=== PATIENT | male | born 1940 | race Asian ===

== ENCOUNTER 2022-04-30 17:55 | Inpatient (IN) | payer OTHER ==
[2022-04-30] MEDS ORDERED: SODIUM CHLORIDE 0.9% 500 ML INFUS.BAG IV ONE ×2 (19:38→21:07)
[2022-04-30] MEDS ORDERED: ACETAMINOPHEN 1000 MG/100 ML BAG IVPB ONE (19:38)
[2022-04-30] MEDS ORDERED: ACETAMINOPHEN INJECTION 100 ML IVPB ONE (19:44)
[2022-04-30 20:19] LABS: VENOUS BASE EXCESS 1.3 mmol/L (-2-2); VENOUS O2 SATURATION 50.1 % (70-80); VENOUS PCO2 45.2 mmHg (38-52); VENOUS PH 7.389 (7.310-7.410)
[2022-04-30 20:21] LABS: BASO % 0.3 % (0-2.0); HEMATOCRIT 41.5 % (35.4-49); HEMOGLOBIN 13.3 GM/dL (11.7-16.9); LYMPH % 6.8 % (8-40); MCH 25.8 pg (25.7-33.7); MEAN CELL VOLUME 80.8 fl (80-96); MONO % 8.9 % (3.8-10.2); PLATELET COUNT 203 10^3/uL (134-434); RBC 5.13 M/mm3 (4.00-5.60); RDW 14.9 % (11.9-15.9); WHITE BLOOD COUNT 8.3 K/mm3 (4.0-10.0)
[2022-04-30 20:33] LABS: INR 1.1 (0.83-1.09); PROTHROMBIN TIME (PATIENT) 12.7 SEC (9.7-13.0)
[2022-04-30 20:35] LABS: ACTIVATED PTT 34.6 SECONDS (25.2-36.5)
[2022-04-30 20:39] LABS: CHLORIDE 104 mmol/L (98-107); SODIUM 138 mmol/L (136-145)
[2022-04-30 20:41] LABS: ALBUMIN 3.3 g/dl (3.4-5.0); ANION GAP 10 MMOL/L (8-16); BLOOD UREA NITROGEN 20.1 mg/dL (7-18); CALCIUM 8.5 mg/dL (8.5-10.1); CO2 23 mmol/L (21-32); GLUCOSE,RANDOM 172 mg/dL (74-106); MAGNESIUM 2.2 mg/dL (1.8-2.4)
[2022-04-30 20:44] LABS: CREATININE 1.6 mg/dL (0.55-1.3); SGPT/ALT 28 U/L (13-61)
[2022-04-30 20:45] LABS: SGOT/AST 45 U/L (15-37)
[2022-04-30 20:46] LABS: BILIRUBIN,TOTAL 0.6 mg/dL (0.2-1); TOT PROT 6.6 g/dl (6.4-8.2)
[2022-04-30 20:47] LABS: ALK PHOS 89 U/L (45-117)
[2022-04-30 20:48] LABS: LACTIC ACID 3.2 mmol/L (0.4-2.0)
[2022-04-30 22:49] LABS: N-TERMINAL BNP 241.2 pg/ml (5-450)
[2022-04-30] MEDS ORDERED: ASPIRIN 81 MG CHEWABLE TABLETS PO ONE (23:36)
[2022-05-01] MEDS ORDERED: ASPIRIN 81 MG CHEWABLE TABLETS ONE (00:17)
[2022-05-01 03:36] VITALS: RESP 18; BMI 22.7
[2022-05-01 08:02] LABS: CALCIUM 7.8 mg/dL (8.5-10.1)
[2022-05-01 08:03] LABS: ALBUMIN 2.6 g/dl (3.4-5.0); BLOOD UREA NITROGEN 21.6 mg/dL (7-18); MAGNESIUM 2.1 mg/dL (1.8-2.4)
[2022-05-01 08:06] LABS: CREATININE 1.4 mg/dL (0.55-1.3)
[2022-05-01 08:07] LABS: BILIRUBIN,TOTAL 0.5 mg/dL (0.2-1); TOT PROT 5.4 g/dl (6.4-8.2)
[2022-05-01 08:15] LABS: BASO % 0.3 % (0-2.0); EOS % 0.2 % (0-4.5); HEMOGLOBIN 12.4 GM/dL (11.7-16.9); LYMPH % 18.6 % (8-40); MCH 25.9 pg (25.7-33.7); MCHC 31.8 g/dl (32.0-35.9); MEAN CELL VOLUME 81.6 fl (80-96); MEAN PLT VOLUME 8.1 fl (7.5-11.1); MONO % 13.5 % (3.8-10.2); NEUT % 67.4 % (42.8-82.8); PLATELET COUNT 183 10^3/uL (134-434); RBC 4.79 M/mm3 (4.00-5.60); RDW 15.2 % (11.9-15.9); WHITE BLOOD COUNT 4.5 K/mm3 (4.0-10.0)
[2022-05-01] MEDS: VALSARTAN 80 MG TABLET PO SCH (11:37)
[2022-05-01] MEDS: amLODIPine BESYLATE 5 MG TABLET (FP) PO SCH (11:37)
[2022-05-01] MEDS: HYDROCHLOROTHIAZIDE 12.5 MG CAPSULE (FP) PO SCH (11:37)
[2022-05-01] MEDS: ACETAMINOPHEN 325 MG TABLET (FP) PO PRN (17:00)
[2022-05-01] MEDS: INSULIN SLIDING SCALE (NOVOLOG) 1 VIAL SQ SCH ×2 (17:17→22:15)
[2022-05-01] MEDS ORDERED: ATORVASTATIN CA 10 MG TABLET (FP) PO SCH (22:00)
[2022-05-02 00:18] LABS: EPI CELLS 0 /uL (0-25.1); HYALINE CASTS 0 /uL (0-3.1); PH,URINE 5.5 (5.0-8.0); URINE APPEARANCE CLEAR; URINE BACTERIA 3 /uL (0-1359); URINE BILIRUBIN NEGATIVE (NEGATIVE); URINE COLOR YELLOW; URINE GLUCOSE (UA) 3+ (NEGATIVE); URINE KETONE TRACE (NEGATIVE); URINE LEUK ESTERASE NEGATIVE (NEGATIVE); URINE NITRITE NEGATIVE (NEGATIVE); URINE PROTEIN TRACE (NEGATIVE); URINE RBC 2 /uL (0-23.9); URINE UROBILINOGEN 0.2 mg/dL (0.2-1.0); URINE WBC 2 /uL (0-25.8)
[2022-05-02] MEDS: ACETAMINOPHEN 325 MG TABLET (FP) PO PRN (00:59)
[2022-05-02] MEDS: INSULIN SLIDING SCALE (NOVOLOG) 1 VIAL SQ SCH ×2 (06:42→11:42)
[2022-05-02 08:40] VITALS: TEMP 98.7
[2022-05-02] MEDS: HYDROCHLOROTHIAZIDE 12.5 MG CAPSULE (FP) PO SCH (10:08)
[2022-05-02] MEDS: VALSARTAN 80 MG TABLET PO SCH (10:09)
[2022-05-02] MEDS: amLODIPine BESYLATE 5 MG TABLET (FP) PO SCH (10:09)
[2022-05-02 15:19] VITALS: BP 123/74; PULSE 89
== END 2022-05-02 16:30 | disposition home or self-care (01) | DRG 178 ==
LOC: JER 17:55 → JERBED 22:12 → J4S 05-01 03:16
PROVIDERS: ADMIT Internal Medicine; ATTEND Internal Medicine
DX: U07.1 COVID-19 (principal); E87.20 Acidosis, unspecified; I24.8 Other forms of acute ischemic heart disease; E86.0 Dehydration; E11.9 Type 2 diabetes mellitus without complications; I10 Essential (primary) hypertension
CPT/HCPCS: 0241U-QW; 36415; 70450-TC; 71045-TC-FY; 80053; 80061; 81003; 82728; 82803; 82962; 83605; 83615; 83735; 83880; 84443; 84484; 85025; 85379; 85610; 85730; 86140; 87040; 87086; 93005; 93010; 93306-TC; 97116-GP; 97161-GP; 99285-25

== ENCOUNTER 2022-05-09 09:07 | Observation (INO) | payer OTHER ==
[2022-05-09] MEDS ORDERED: LACTATED RINGERS SOLUTION 1000 ML INFUS.BAG IV ONE (10:54)
[2022-05-09 10:59] VITALS: BMI 28.0
[2022-05-09 12:03] LABS: BASO % 0.2 % (0-2.0); EOS % 0.1 % (0-4.5); HEMATOCRIT 41.7 % (35.4-49); HEMOGLOBIN 13.6 GM/dL (11.7-16.9); LYMPH % 17.8 % (8-40); MCH 26.2 pg (25.7-33.7); MCHC 32.6 g/dl (32.0-35.9); MEAN CELL VOLUME 80.2 fl (80-96); MEAN PLT VOLUME 8.2 fl (7.5-11.1); MONO % 5.9 % (3.8-10.2); PLATELET COUNT 254 10^3/uL (134-434); RDW 14.7 % (11.9-15.9); WHITE BLOOD COUNT 7.8 K/mm3 (4.0-10.0)
[2022-05-09 12:20] LABS: BLOOD UREA NITROGEN 15.6 mg/dL (7-18); MAGNESIUM 2.1 mg/dL (1.8-2.4)
[2022-05-09 12:23] LABS: PHOSPHOROUS 2.4 mg/dL (2.5-4.9)
[2022-05-09 12:24] LABS: BILIRUBIN,TOTAL 0.7 mg/dL (0.2-1)
[2022-05-09 12:32] LABS: ALBUMIN 3.6 g/dl (3.4-5.0); CALCIUM 9.1 mg/dL (8.5-10.1)
[2022-05-10 13:54] VITALS: BP 137/57; PULSE 88; RESP 20; TEMP 98.7
[2022-05-10] MEDS ORDERED: ATORVASTATIN CA 10 MG TABLET (FP) PO SCH (22:00)
[2022-05-11] MEDS ORDERED: VALSARTAN 80 MG TABLET PO SCH (10:00)
[2022-05-11] MEDS ORDERED: PATIENT'S OWN MEDICATION (NON-FORMULARY) (Dapagliflozin Propanediol [Farxiga] 5 MG Tablet) PO SCH (10:00)
[2022-05-11] MEDS ORDERED: amLODIPine BESYLATE 5 MG TABLET (FP) PO SCH (10:00)
[2022-05-11] MEDS ORDERED: HYDROCHLOROTHIAZIDE 12.5 MG CAPSULE (FP) PO SCH (10:00)
== END 2022-05-10 14:45 | disposition home or self-care (01) ==
LOC: JER 09:07 → JERBED 16:28
PROVIDERS: ADMIT Internal Medicine; ATTEND Internal Medicine
PROC: 3E0337Z Introduction of Electrolytic and Water Balance Substance into Peripheral Vein, Percutaneous Approach (ICD-10-PCS; principal; 2022-05-09)
DX: R42 Dizziness and giddiness (principal); R53.1 Weakness; I10 Essential (primary) hypertension; Z87.891 Personal history of nicotine dependence; I25.2 Old myocardial infarction; E78.00 Pure hypercholesterolemia, unspecified; E11.9 Type 2 diabetes mellitus without complications
CPT/HCPCS: 0241U-QW; 36415; 71045-TC-FY; 80053; 82962; 83735; 84100; 84484; 85025; 93005; 93010; 96360; 99285-25; G0378

== ENCOUNTER 2022-10-15 21:47 | Inpatient (IN) | payer OTHER ==
[2022-10-15 23:16] LABS: BASO % 0.4 % (0-2.0); EOS % 0.7 % (0-4.5); HEMOGLOBIN 14.4 GM/dL (11.7-16.9); LYMPH % 21.4 % (8-40); MCH 25.6 pg (25.7-33.7); MEAN CELL VOLUME 80.1 fl (80-96); MEAN PLT VOLUME 8.4 fl (7.5-11.1); NEUT % 70.5 % (42.8-82.8); PLATELET COUNT 197 10^3/uL (134-434); RBC 5.61 M/mm3 (4.00-5.60); RDW 15.5 % (11.9-15.9); WHITE BLOOD COUNT 8.4 K/mm3 (4.0-10.0)
[2022-10-15 23:23] LABS: INR 0.97 (0.83-1.09); PROTHROMBIN TIME (PATIENT) 11.2 SEC (9.7-13.0)
[2022-10-15 23:26] LABS: ACTIVATED PTT 33.6 SECONDS (25.2-36.5)
[2022-10-15 23:36] LABS: POTASSIUM 4.5 mmol/L (3.5-5.1)
[2022-10-15 23:38] LABS: ALBUMIN 3.5 g/dl (3.4-5.0); CALCIUM 9.3 mg/dL (8.5-10.1); MAGNESIUM 2.1 mg/dL (1.8-2.4)
[2022-10-15 23:42] LABS: CREATININE 1.2 mg/dL (0.55-1.3)
[2022-10-15 23:43] LABS: BILIRUBIN,TOTAL 0.6 mg/dL (0.2-1); TOT PROT 6.4 g/dl (6.4-8.2)
[2022-10-15] MEDS ORDERED: SODIUM CHLORIDE 0.9% 500 ML INFUS.BAG IV ONE (23:56)
[2022-10-16 00:35] LABS: PH,URINE 7.5 (5.0-8.0); URINE APPEARANCE CLEAR; URINE BILIRUBIN NEGATIVE (NEGATIVE); URINE COLOR YELLOW; URINE GLUCOSE (UA) 3+ (NEGATIVE); URINE KETONE NEGATIVE (NEGATIVE); URINE LEUK ESTERASE NEGATIVE (NEGATIVE); URINE NITRITE NEGATIVE (NEGATIVE); URINE PROTEIN NEGATIVE (NEGATIVE); URINE UROBILINOGEN 0.2 mg/dL (0.2-1.0)
[2022-10-16] MEDS ORDERED: ACETAMINOPHEN 1000 MG/100 ML BAG IVPB ONE (00:53)
[2022-10-16] MEDS ORDERED: ACETAMINOPHEN 325 MG TABLET (FP) ONE (01:06)
[2022-10-16] MEDS ORDERED: ACETAMINOPHEN 500 MG TABLET (FP) PO ONE (01:06)
[2022-10-16 06:46] VITALS: BMI 22.4
[2022-10-16] MEDS: VALSARTAN 80 MG TABLET PO SCH (09:32)
[2022-10-16] MEDS: amLODIPine BESYLATE 5 MG TABLET (FP) PO SCH (09:32)
[2022-10-16] MEDS: HYDROCHLOROTHIAZIDE 12.5 MG CAPSULE (FP) PO SCH (09:32)
[2022-10-16 11:30] LABS: BASO % 0.4 % (0-2.0); EOS % 1.3 % (0-4.5); HEMATOCRIT 47.5 % (35.4-49); HEMOGLOBIN 15.2 GM/dL (11.7-16.9); LYMPH % 22.1 % (8-40); MCH 25.5 pg (25.7-33.7); MEAN CELL VOLUME 79.8 fl (80-96); MEAN PLT VOLUME 8.5 fl (7.5-11.1); MONO % 6.5 % (3.8-10.2); NEUT % 69.7 % (42.8-82.8); PLATELET COUNT 206 10^3/uL (134-434); RBC 5.95 M/mm3 (4.00-5.60); RDW 15.3 % (11.9-15.9)
[2022-10-16 11:50] LABS: POTASSIUM 4.4 mmol/L (3.5-5.1)
[2022-10-16 11:57] LABS: CALCIUM 9.4 mg/dL (8.5-10.1)
[2022-10-16 11:58] LABS: BLOOD UREA NITROGEN 20.2 mg/dL (7-18)
[2022-10-16 12:03] LABS: CHOLESTEROL 167 mg/dL (50-200)
[2022-10-16 12:04] LABS: LDL CHOLESTEROL (ONLY SJRH) 106 mg/dL (5-100)
[2022-10-16 12:06] LABS: HDL CHOLESTEROL 38 mg/dL (40-60)
[2022-10-16] MEDS: INSULIN SLIDING SCALE (NOVOLOG) 1 VIAL SQ SCH ×3 (12:10→21:19)
[2022-10-16] MEDS: MECLIZINE HCL 12.5 MG TABLET PO PRN (16:12)
[2022-10-16] MEDS: INSULIN (NOVOLOG MIX 70/30) 100 UNITS/ML MDV SQ SCH (17:48)
[2022-10-16] MEDS ORDERED: INSULIN (NOVOLOG) ASPART 100 UNITS/ML 10ML VIAL ONE (20:57)
[2022-10-16] MEDS ORDERED: ATORVASTATIN CA 10 MG TABLET (FP) PO SCH (22:00)
[2022-10-17] MEDS: INSULIN SLIDING SCALE (NOVOLOG) 1 VIAL SQ SCH ×4 (06:02→22:03)
[2022-10-17 08:35] LABS: POTASSIUM 4.3 mmol/L (3.5-5.1)
[2022-10-17 08:37] LABS: BLOOD UREA NITROGEN 20.7 mg/dL (7-18); CALCIUM 9.5 mg/dL (8.5-10.1)
[2022-10-17 08:41] LABS: CREATININE 1.1 mg/dL (0.55-1.3)
[2022-10-17] MEDS: INSULIN (NOVOLOG MIX 70/30) 100 UNITS/ML MDV SQ SCH ×2 (09:44→17:07)
[2022-10-17] MEDS: HYDROCHLOROTHIAZIDE 12.5 MG CAPSULE (FP) PO SCH (09:45)
[2022-10-17] MEDS: VALSARTAN 80 MG TABLET PO SCH (09:45)
[2022-10-17] MEDS: amLODIPine BESYLATE 5 MG TABLET (FP) PO SCH (09:45)
[2022-10-17] MEDS: MECLIZINE HCL 12.5 MG TABLET PO PRN (17:00)
[2022-10-17] MEDS ORDERED: ATORVASTATIN CA 40 MG TABLET (FP) PO SCH (22:00)
[2022-10-18] MEDS: INSULIN SLIDING SCALE (NOVOLOG) 1 VIAL SQ SCH ×4 (06:09→21:45)
[2022-10-18] MEDS ORDERED: INSULIN (NOVOLOG MIX 70/30) 100 UNITS/ML MDV SQ SCH (09:56)
[2022-10-18] MEDS: INSULIN (NOVOLOG MIX 70/30) 100 UNITS/ML MDV SQ SCH ×2 (10:41→18:35)
[2022-10-18] MEDS: VALSARTAN 80 MG TABLET PO SCH (10:42)
[2022-10-18] MEDS: HYDROCHLOROTHIAZIDE 12.5 MG CAPSULE (FP) PO SCH (10:42)
[2022-10-18] MEDS: amLODIPine BESYLATE 5 MG TABLET (FP) PO SCH (10:42)
[2022-10-18] MEDS ORDERED: INSULIN (NOVOLOG) ASPART 100 UNITS/ML 10ML VIAL ONE (12:50)
[2022-10-18] MEDS: MECLIZINE HCL 12.5 MG TABLET PO PRN (14:16)
[2022-10-18] MEDS: PATIENT'S OWN MEDICATION (NON-FORMULARY) (Dapagliflozin Propanediol [Farxiga] 5 MG Tablet) PO SCH ×2 (20:13→20:14)
[2022-10-18] MEDS: ATORVASTATIN CA 40 MG TABLET (FP) PO SCH (21:43)
[2022-10-19] MEDS: INSULIN (NOVOLOG MIX 70/30) 100 UNITS/ML MDV SQ SCH ×2 (06:26→17:07)
[2022-10-19] MEDS: INSULIN SLIDING SCALE (NOVOLOG) 1 VIAL SQ SCH ×4 (06:27→21:31)
[2022-10-19] MEDS: amLODIPine BESYLATE 5 MG TABLET (FP) PO SCH (09:41)
[2022-10-19] MEDS: VALSARTAN 80 MG TABLET PO SCH (09:41)
[2022-10-19] MEDS: HYDROCHLOROTHIAZIDE 12.5 MG CAPSULE (FP) PO SCH (09:41)
[2022-10-19] MEDS: ACETAMINOPHEN 325 MG TABLET (FP) PO PRN (12:26)
[2022-10-19] MEDS: MECLIZINE HCL 12.5 MG TABLET PO PRN (18:36)
[2022-10-19] MEDS: ATORVASTATIN CA 40 MG TABLET (FP) PO SCH (21:27)
[2022-10-20] MEDS: INSULIN SLIDING SCALE (NOVOLOG) 1 VIAL SQ SCH ×4 (06:47→21:45)
[2022-10-20] MEDS: INSULIN (NOVOLOG MIX 70/30) 100 UNITS/ML MDV SQ SCH ×2 (06:47→16:58)
[2022-10-20 09:48] LABS: BASO % 0.6 % (0-2.0); EOS % 2.2 % (0-4.5); HEMATOCRIT 49.9 % (35.4-49); LYMPH % 30.3 % (8-40); MCH 25.9 pg (25.7-33.7); MCHC 32.1 g/dl (32.0-35.9); MEAN CELL VOLUME 80.6 fl (80-96); MEAN PLT VOLUME 8.6 fl (7.5-11.1); MONO % 5.7 % (3.8-10.2); NEUT % 61.2 % (42.8-82.8); PLATELET COUNT 216 10^3/uL (134-434); RBC 6.19 M/mm3 (4.00-5.60); RDW 15.6 % (11.9-15.9); WHITE BLOOD COUNT 9.7 K/mm3 (4.0-10.0)
[2022-10-20 10:04] LABS: POTASSIUM 3.9 mmol/L (3.5-5.1)
[2022-10-20 10:16] LABS: CALCIUM 9.4 mg/dL (8.5-10.1)
[2022-10-20 10:17] LABS: BLOOD UREA NITROGEN 30.4 mg/dL (7-18)
[2022-10-20] MEDS: amLODIPine BESYLATE 5 MG TABLET (FP) PO SCH (10:19)
[2022-10-20] MEDS: HYDROCHLOROTHIAZIDE 12.5 MG CAPSULE (FP) PO SCH (10:19)
[2022-10-20] MEDS: VALSARTAN 80 MG TABLET PO SCH (10:19)
[2022-10-20 10:20] LABS: ALBUMIN 3.5 g/dl (3.4-5.0); CREATININE 1.3 mg/dL (0.55-1.3)
[2022-10-20 10:21] LABS: BILIRUBIN,TOTAL 1.5 mg/dL (0.2-1)
[2022-10-20 10:22] LABS: TOT PROT 6.6 g/dl (6.4-8.2)
[2022-10-20] MEDS: MECLIZINE HCL 12.5 MG TABLET PO PRN (14:12)
[2022-10-20] MEDS: ATORVASTATIN CA 40 MG TABLET (FP) PO SCH (21:45)
[2022-10-21] MEDS: INSULIN (NOVOLOG MIX 70/30) 100 UNITS/ML MDV SQ SCH ×2 (06:20→17:51)
[2022-10-21] MEDS: INSULIN SLIDING SCALE (NOVOLOG) 1 VIAL SQ SCH ×4 (06:20→21:46)
[2022-10-21] MEDS: amLODIPine BESYLATE 5 MG TABLET (FP) PO SCH (10:30)
[2022-10-21] MEDS: HYDROCHLOROTHIAZIDE 12.5 MG CAPSULE (FP) PO SCH (10:30)
[2022-10-21] MEDS: VALSARTAN 80 MG TABLET PO SCH (10:30)
[2022-10-21] MEDS: ACETAMINOPHEN 325 MG TABLET (FP) PO PRN (16:09)
[2022-10-21] MEDS: ATORVASTATIN CA 40 MG TABLET (FP) PO SCH (21:46)
[2022-10-22] MEDS: INSULIN SLIDING SCALE (NOVOLOG) 1 VIAL SQ SCH ×4 (06:01→21:53)
[2022-10-22] MEDS: INSULIN (NOVOLOG MIX 70/30) 100 UNITS/ML MDV SQ SCH (06:59)
[2022-10-22] MEDS: INSULIN (NOVOLOG) ASPART 100 UNITS/ML 10ML VIAL SQ SCH ×3 (07:00→17:19)
[2022-10-22] MEDS: VALSARTAN 80 MG TABLET PO SCH (10:06)
[2022-10-22] MEDS: amLODIPine BESYLATE 5 MG TABLET (FP) PO SCH (10:06)
[2022-10-22] MEDS: HYDROCHLOROTHIAZIDE 12.5 MG CAPSULE (FP) PO SCH (10:06)
[2022-10-22] MEDS: ACETAMINOPHEN 325 MG TABLET (FP) PO PRN (11:40)
[2022-10-22] MEDS: MECLIZINE HCL 12.5 MG TABLET PO PRN (11:41)
[2022-10-22] MEDS: ATORVASTATIN CA 40 MG TABLET (FP) PO SCH (21:53)
[2022-10-23] MEDS: INSULIN (NOVOLOG MIX 70/30) 100 UNITS/ML MDV SQ SCH (06:55)
[2022-10-23] MEDS: INSULIN (NOVOLOG) ASPART 100 UNITS/ML 10ML VIAL SQ SCH ×3 (06:56→17:28)
[2022-10-23] MEDS: INSULIN SLIDING SCALE (NOVOLOG) 1 VIAL SQ SCH ×4 (06:56→21:31)
[2022-10-23] MEDS: HYDROCHLOROTHIAZIDE 12.5 MG CAPSULE (FP) PO SCH (09:40)
[2022-10-23] MEDS: VALSARTAN 80 MG TABLET PO SCH (09:40)
[2022-10-23] MEDS: amLODIPine BESYLATE 5 MG TABLET (FP) PO SCH (09:40)
[2022-10-23] MEDS ORDERED: INSULIN SLIDING SCALE (NOVOLOG) 1 VIAL SQ ONE (12:04)
[2022-10-23] MEDS: ACETAMINOPHEN 325 MG TABLET (FP) PO PRN (16:47)
[2022-10-23] MEDS: MECLIZINE HCL 12.5 MG TABLET PO PRN (21:30)
[2022-10-23] MEDS: ATORVASTATIN CA 40 MG TABLET (FP) PO SCH (21:30)
[2022-10-24] MEDS: INSULIN (NOVOLOG) ASPART 100 UNITS/ML 10ML VIAL SQ SCH ×3 (06:54→16:24)
[2022-10-24] MEDS: INSULIN SLIDING SCALE (NOVOLOG) 1 VIAL SQ SCH ×4 (06:55→21:00)
[2022-10-24] MEDS ORDERED: INSULIN (LEVEMIR) 100 UNITS/ML UNITS SQ SCH (07:00)
[2022-10-24] MEDS: HYDROCHLOROTHIAZIDE 12.5 MG CAPSULE (FP) PO SCH (10:24)
[2022-10-24] MEDS: amLODIPine BESYLATE 5 MG TABLET (FP) PO SCH (10:24)
[2022-10-24] MEDS: VALSARTAN 80 MG TABLET PO SCH (10:24)
[2022-10-24] MEDS: ACETAMINOPHEN 325 MG TABLET (FP) PO PRN (16:28)
[2022-10-24] MEDS: INSULIN (LEVEMIR) 100 UNITS/ML UNITS SQ SCH (18:14)
[2022-10-24] MEDS: MECLIZINE HCL 12.5 MG TABLET PO PRN (18:29)
[2022-10-24] MEDS: ATORVASTATIN CA 40 MG TABLET (FP) PO SCH (21:00)
[2022-10-25] MEDS: INSULIN (LEVEMIR) 100 UNITS/ML UNITS SQ SCH (06:01)
[2022-10-25] MEDS: INSULIN SLIDING SCALE (NOVOLOG) 1 VIAL SQ SCH ×4 (06:02→21:42)
[2022-10-25] MEDS: INSULIN (NOVOLOG) ASPART 100 UNITS/ML 10ML VIAL SQ SCH ×3 (06:02→17:17)
[2022-10-25] MEDS: HYDROCHLOROTHIAZIDE 12.5 MG CAPSULE (FP) PO SCH (10:23)
[2022-10-25] MEDS: VALSARTAN 80 MG TABLET PO SCH (10:23)
[2022-10-25] MEDS: amLODIPine BESYLATE 5 MG TABLET (FP) PO SCH (10:23)
[2022-10-25] MEDS: ACETAMINOPHEN 325 MG TABLET (FP) PO PRN (16:16)
[2022-10-25] MEDS: MECLIZINE HCL 12.5 MG TABLET PO PRN (18:28)
[2022-10-25] MEDS: ATORVASTATIN CA 40 MG TABLET (FP) PO SCH (21:43)
[2022-10-26] MEDS: INSULIN SLIDING SCALE (NOVOLOG) 1 VIAL SQ SCH ×4 (06:25→22:40)
[2022-10-26] MEDS: INSULIN (NOVOLOG) ASPART 100 UNITS/ML 10ML VIAL SQ SCH ×3 (06:25→16:38)
[2022-10-26] MEDS: INSULIN (LEVEMIR) 100 UNITS/ML UNITS SQ SCH (06:26)
[2022-10-26] MEDS: HYDROCHLOROTHIAZIDE 12.5 MG CAPSULE (FP) PO SCH (09:39)
[2022-10-26] MEDS: VALSARTAN 80 MG TABLET PO SCH (09:40)
[2022-10-26] MEDS: amLODIPine BESYLATE 5 MG TABLET (FP) PO SCH (09:40)
[2022-10-26] MEDS: ACETAMINOPHEN 325 MG TABLET (FP) PO PRN (16:46)
[2022-10-26] MEDS: ATORVASTATIN CA 40 MG TABLET (FP) PO SCH (22:34)
[2022-10-26] MEDS: MECLIZINE HCL 12.5 MG TABLET PO PRN (22:34)
[2022-10-27] MEDS: INSULIN (LEVEMIR) 100 UNITS/ML UNITS SQ SCH (07:43)
[2022-10-27] MEDS: INSULIN SLIDING SCALE (NOVOLOG) 1 VIAL SQ SCH ×4 (07:44→21:41)
[2022-10-27] MEDS: amLODIPine BESYLATE 5 MG TABLET (FP) PO SCH (10:33)
[2022-10-27] MEDS: VALSARTAN 80 MG TABLET PO SCH (10:33)
[2022-10-27] MEDS: HYDROCHLOROTHIAZIDE 12.5 MG CAPSULE (FP) PO SCH (10:33)
[2022-10-27] MEDS: INSULIN (NOVOLOG) ASPART 100 UNITS/ML 10ML VIAL SQ SCH ×2 (12:55→16:53)
[2022-10-27] MEDS: MECLIZINE HCL 12.5 MG TABLET PO PRN (18:31)
[2022-10-27] MEDS: ACETAMINOPHEN 325 MG TABLET (FP) PO PRN (18:37)
[2022-10-27] MEDS: ATORVASTATIN CA 40 MG TABLET (FP) PO SCH (21:34)
[2022-10-28] MEDS: INSULIN (NOVOLOG) ASPART 100 UNITS/ML 10ML VIAL SQ SCH ×4 (00:20→17:17)
[2022-10-28] MEDS: INSULIN SLIDING SCALE (NOVOLOG) 1 VIAL SQ SCH ×4 (06:27→21:37)
[2022-10-28] MEDS: INSULIN (LEVEMIR) 100 UNITS/ML UNITS SQ SCH (06:28)
[2022-10-28] MEDS: VALSARTAN 80 MG TABLET PO SCH (11:27)
[2022-10-28] MEDS: MECLIZINE HCL 12.5 MG TABLET PO PRN (11:27)
[2022-10-28] MEDS: HYDROCHLOROTHIAZIDE 12.5 MG CAPSULE (FP) PO SCH (11:28)
[2022-10-28] MEDS: amLODIPine BESYLATE 5 MG TABLET (FP) PO SCH (11:29)
[2022-10-28] MEDS: ACETAMINOPHEN 325 MG TABLET (FP) PO PRN (14:26)
[2022-10-28] MEDS: ATORVASTATIN CA 40 MG TABLET (FP) PO SCH (21:35)
[2022-10-29] MEDS: MECLIZINE HCL 12.5 MG TABLET PO PRN ×2 (00:33→15:21)
[2022-10-29] MEDS: INSULIN (LEVEMIR) 100 UNITS/ML UNITS SQ SCH (06:34)
[2022-10-29] MEDS: INSULIN SLIDING SCALE (NOVOLOG) 1 VIAL SQ SCH ×4 (06:34→22:38)
[2022-10-29] MEDS: INSULIN (NOVOLOG) ASPART 100 UNITS/ML 10ML VIAL SQ SCH ×3 (06:35→16:58)
[2022-10-29] MEDS: VALSARTAN 80 MG TABLET PO SCH ×2 (11:15→13:03)
[2022-10-29 11:26] VITALS: RESP 18
[2022-10-29] MEDS: ACETAMINOPHEN 325 MG TABLET (FP) PO PRN (12:09)
[2022-10-29] MEDS: HYDROCHLOROTHIAZIDE 12.5 MG CAPSULE (FP) PO SCH (13:03)
[2022-10-29] MEDS: ATORVASTATIN CA 40 MG TABLET (FP) PO SCH (22:38)
[2022-10-30] MEDS: INSULIN (NOVOLOG) ASPART 100 UNITS/ML 10ML VIAL SQ SCH ×2 (06:01→12:19)
[2022-10-30] MEDS: INSULIN SLIDING SCALE (NOVOLOG) 1 VIAL SQ SCH ×2 (06:01→12:19)
[2022-10-30] MEDS: INSULIN (LEVEMIR) 100 UNITS/ML UNITS SQ SCH (06:01)
[2022-10-30 09:07] LABS: BASO % 0.3 % (0-2.0); EOS % 1.8 % (0-4.5); HEMATOCRIT 44.2 % (35.4-49); HEMOGLOBIN 14.7 GM/dL (11.7-16.9); LYMPH % 18.7 % (8-40); MCH 26.1 pg (25.7-33.7); MCHC 33.2 g/dl (32.0-35.9); MEAN CELL VOLUME 78.4 fl (80-96); MEAN PLT VOLUME 7.8 fl (7.5-11.1); MONO % 6.2 % (3.8-10.2); PLATELET COUNT 225 10^3/uL (134-434); RBC 5.64 M/mm3 (4.00-5.60); RDW 15.6 % (11.9-15.9); WHITE BLOOD COUNT 9.7 K/mm3 (4.0-10.0)
[2022-10-30 09:38] LABS: POTASSIUM 4.2 mmol/L (3.5-5.1)
[2022-10-30 09:51] LABS: CALCIUM 9.3 mg/dL (8.5-10.1)
[2022-10-30 09:52] LABS: BLOOD UREA NITROGEN 22.3 mg/dL (7-18)
[2022-10-30 09:57] LABS: BILIRUBIN,TOTAL 1.1 mg/dL (0.2-1)
[2022-10-30 09:58] LABS: TOT PROT 5.9 g/dl (6.4-8.2)
[2022-10-30] MEDS: VALSARTAN 80 MG TABLET PO SCH (10:55)
[2022-10-30 12:22] VITALS: BP 115/58; PULSE 73; TEMP 98.4
== END 2022-10-30 12:30 | disposition home or self-care (01) | DRG 149 ==
LOC: JER 21:47 → JERBED 10-16 00:32 → J4W 10-16 06:56 → OBSVTOIN 10-18 10:06 → J5S 10-18 15:19
PROVIDERS: ADMIT Internal Medicine; ATTEND Internal Medicine
DX: R42 Dizziness and giddiness (principal); I62.00 Nontraumatic subdural hemorrhage, unspecified; I10 Essential (primary) hypertension; E78.5 Hyperlipidemia, unspecified; E11.40 Type 2 diabetes mellitus with diabetic neuropathy, unspecified; R26.81 Unsteadiness on feet; G93.89 Other specified disorders of brain; I77.819 Aortic ectasia, unspecified site; Z86.73 Personal history of transient ischemic attack (TIA), and cerebral infarction without residual deficits
CPT/HCPCS: 0241U-QW; 36415; 70450-TC; 70496-TC; 70498-TC; 71045-TC-FY; 80048; 80053; 80061; 81003; 82550; 82962; 83036; 83735; 84439; 84443; 84484; 85025; 85610; 85730; 86850; 86900; 86901; 87086; 87186; 93005; 93010; 93880-TC; 97116-GP; 97162-GP; 99285-25; G0378; Q9967

== ENCOUNTER 2024-03-25 01:37 | Observation (INO) | payer OTHER ==
[2024-03-25] MEDS ORDERED: FAMOTIDINE 20 MG/50 ML IVPB 20 MG/50 ML MG IVPB ONE ×2 (02:20→02:38)
[2024-03-25] MEDS ORDERED: MAG HYDROX/AL HYDROX/SIMETH 30 ML UNIT-DOSE CUP ONE (02:38)
[2024-03-25] MEDS ORDERED: ACETAMINOPHEN INJECTION 100 ML ONE (02:38)
[2024-03-25 03:03] LABS: VENOUS BASE EXCESS 0.1 mmol/L (-2-2); VENOUS O2 SATURATION 79.4 % (70-80); VENOUS PCO2 38.1 mmHg (38-52); VENOUS PH 7.422 (7.310-7.410)
[2024-03-25 03:06] LABS: BASO % 0.1 % (0-2.0); HEMATOCRIT 42.3 % (35.4-49); HEMOGLOBIN 13.6 GM/dL (11.7-16.9); LYMPH % 4.5 % (8-40); MCH 24.4 pg (25.7-33.7); MCHC 32.2 g/dl (32.0-35.9); MEAN CELL VOLUME 75.6 fl (80-96); MONO % 5.6 % (3.8-10.2); NEUT % 89.8 % (42.8-82.8); PLATELET COUNT 142 10^3/uL (134-434); RDW 15.6 % (11.9-15.9); WHITE BLOOD COUNT 15.5 K/mm3 (4.0-10.0)
[2024-03-25] MEDS: MAG HYDROX/AL HYDROX/SIMETH 30 ML UNIT-DOSE CUP PO ONE (03:14)
[2024-03-25] MEDS: ACETAMINOPHEN 1000 MG/100 ML BAG IVPB ONE (03:14)
[2024-03-25 03:23] LABS: POTASSIUM 3.7 mmol/L (3.5-5.1)
[2024-03-25 03:23] LABS: EPI CELLS 1 /uL (0-25.1); HYALINE CASTS 1 /uL (0-3.1); PH,URINE 5.5 (5.0-8.0); URINE APPEARANCE CLOUDY; URINE BACTERIA >9,000 /uL (0-1359); URINE BILIRUBIN NEGATIVE (NEGATIVE); URINE COLOR YELLOW; URINE GLUCOSE (UA) 3+ (NEGATIVE); URINE KETONE NEGATIVE (NEGATIVE); URINE LEUK ESTERASE NEGATIVE (NEGATIVE); URINE NITRITE NEGATIVE (NEGATIVE); URINE PROTEIN NEGATIVE (NEGATIVE); URINE RBC 17 /uL (0-23.9); URINE UROBILINOGEN 0.2 mg/dL (0.2-1.0)
[2024-03-25 03:25] LABS: BLOOD UREA NITROGEN 23.9 mg/dL (7-18); CALCIUM 9.2 mg/dL (8.5-10.1)
[2024-03-25 03:26] LABS: ALBUMIN 3.4 g/dl (3.4-5.0); MAGNESIUM 1.9 mg/dL (1.8-2.4)
[2024-03-25 03:28] LABS: CREATININE 1.4 mg/dL (0.55-1.3); PHOSPHOROUS 2.2 mg/dL (2.5-4.9)
[2024-03-25 03:30] LABS: BILIRUBIN,TOTAL 1.5 mg/dL (0.2-1); TOT PROT 6.6 g/dl (6.4-8.2)
[2024-03-25] MEDS: FAMOTIDINE 20 MG/50 ML IVPB 20 MG/50 ML MG IVPB ONE (03:30)
[2024-03-25 03:46] LABS: LACTIC ACID 2.9 mmol/L (0.4-2.0)
[2024-03-25] MEDS: SODIUM CHLORIDE 1,000 ML IV STA (04:28)
[2024-03-25] MEDS ORDERED: CEFTRIAXONE 1 G/50 ML PREMIX 50 ML IVPB ONE ×2 (05:07→05:13)
[2024-03-25] MEDS: CEFTRIAXONE 1,000 MG in DEXTROSE 5%-WATER - 50 ML IVPB ONE (05:21)
[2024-03-25 05:55] LABS: INR 1.11 (0.83-1.09); PROTHROMBIN TIME (PATIENT) 12.5 SEC (9.7-13.0)
[2024-03-25 05:58] LABS: ACTIVATED PTT 33.1 SECONDS (25.2-36.5)
[2024-03-25 11:05] LABS: URINE WBC 254.8 /uL (0-25.8)
[2024-03-25 11:40] VITALS: BMI 21.9
[2024-03-25] MEDS: INSULIN ASPART SLIDING SCALE (NOVOLOG) 1 VIAL SQ SCH (11:51)
[2024-03-25] MEDS ORDERED: INSULIN (NOVOLOG MIX 70/30) 100 UNITS/ML MDV SQ SCH (16:30)
[2024-03-25] MEDS: INSULIN (NOVOLOG MIX 70/30) 100 UNITS/ML MDV SQ SCH (17:11)
[2024-03-25] MEDS: ATORVASTATIN CA 10 MG TABLET (FP) PO SCH (21:36)
[2024-03-25] MEDS: HEPARIN NA (PORCINE) 5,000 UNITS/ML 1ML VIAL SQ SCH (21:36)
[2024-03-26 08:16] LABS: BASO % 0.2 % (0-2.0); EOS % 0.1 % (0-4.5); HEMATOCRIT 41.5 % (35.4-49); HEMOGLOBIN 12.9 GM/dL (11.7-16.9); LYMPH % 6.5 % (8-40); MCH 24.5 pg (25.7-33.7); MCHC 31.2 g/dl (32.0-35.9); MEAN CELL VOLUME 78.5 fl (80-96); MEAN PLT VOLUME 9.6 fl (7.5-11.1); MONO % 4.4 % (3.8-10.2); NEUT % 88.8 % (42.8-82.8); PLATELET COUNT 133 10^3/uL (134-434); RBC 5.28 M/mm3 (4.00-5.60); RDW 15.6 % (11.9-15.9); WHITE BLOOD COUNT 12.1 K/mm3 (4.0-10.0)
[2024-03-26 08:35] LABS: POTASSIUM 4.1 mmol/L (3.5-5.1)
[2024-03-26 08:38] LABS: ALBUMIN 2.8 g/dl (3.4-5.0); BLOOD UREA NITROGEN 22.6 mg/dL (7-18); CALCIUM 8.8 mg/dL (8.5-10.1)
[2024-03-26 08:42] LABS: CREATININE 1.1 mg/dL (0.55-1.3)
[2024-03-26 08:43] LABS: BILIRUBIN,TOTAL 0.8 mg/dL (0.2-1); TOT PROT 5.8 g/dl (6.4-8.2)
[2024-03-26] MEDS: CEFTRIAXONE 1 G/50 ML PREMIX 50 ML IVPB SCH (10:01)
[2024-03-26] MEDS: amLODIPine BESYLATE 5 MG TABLET (FP) PO SCH (10:01)
[2024-03-26] MEDS: ACETAMINOPHEN 325 MG TABLET (FP) PO PRN (14:24)
[2024-03-26] MEDS: ACETAMINOPHEN 325 MG TABLET (FP) PO ONE (22:49)
[2024-03-27 15:39] VITALS: BP 136/71; PULSE 89; RESP 20; TEMP 98.9
== END 2024-03-27 18:09 | disposition home or self-care (01) ==
LOC: JER 01:37 → JERBED 06:46 → J7W 11:05
PROVIDERS: ADMIT Internal Medicine; ATTEND Internal Medicine
PROC: 3E033NZ Introduction of Analgesics, Hypnotics, Sedatives into Peripheral Vein, Percutaneous Approach (ICD-10-PCS; principal; 2024-03-25)
PROC: 3E03329 Introduction of Other Anti-infective into Peripheral Vein, Percutaneous Approach (ICD-10-PCS; 2024-03-25)
PROC: 3E023GC Introduction of Other Therapeutic Substance into Muscle, Percutaneous Approach (ICD-10-PCS; 2024-03-25)
PROC: 3E0337Z Introduction of Electrolytic and Water Balance Substance into Peripheral Vein, Percutaneous Approach (ICD-10-PCS; 2024-03-25)
DX: N39.0 Urinary tract infection, site not specified (principal); A41.9 Sepsis, unspecified organism; R53.1 Weakness; E11.9 Type 2 diabetes mellitus without complications; N17.9 Acute kidney failure, unspecified; Z91.013 Allergy to seafood
CPT/HCPCS: 0241U-QW; 36415; 71045-TC-FY; 74176-TC; 80053; 81003; 82010; 82803; 82962; 83036; 83605; 83690; 83735; 84100; 84436; 84439; 84443; 84484; 85025; 85610; 85730; 86850; 86900; 86901; 87086; 87186; 93005; 93010; 96361; 96365; 96366; 96367; 96372; 96375; 99285-25; G0378; J0131; J1644

== ENCOUNTER 2024-07-29 10:51 | Day surgery (SDC) | payer OTHER ==
[2024-07-28 14:45] VITALS: BMI 22.1
[2024-07-29] MEDS ORDERED: ONDANSETRON 4 MG/2 ML VIAL IVPUSH PRN (11:15)
[2024-07-29] MEDS ORDERED: LACTATED RINGERS SOLUTION 1,000 ML IV SCH (11:15)
[2024-07-29] MEDS ORDERED: PROPOFOL 20 ML ONE (11:40)
[2024-07-29] MEDS ORDERED: LIDOCAINE HCL/PF 2% SDV 5ML VIAL ONE (12:15)
[2024-07-29] MEDS ORDERED: ceFAZolin SODIUM 1 GM VIAL ONE (12:18)
[2024-07-29] MEDS ORDERED: ONDANSETRON 4 MG/2 ML VIAL ONE (12:18)
[2024-07-29] MEDS ORDERED: ACETAMINOPHEN 1000 MG/100 ML BAG IVPB ONE (12:37)
[2024-07-29 13:22] VITALS: RESP 16
[2024-07-29 13:41] VITALS: TEMP 97
[2024-07-29 15:36] VITALS: BP 144/67; PULSE 91
== END 2024-07-29 15:05 | disposition home or self-care (01) ==
LOC: FASU 10:51
PROVIDERS: ATTEND Urology
PROC: 0VB03ZX Excision of Prostate, Percutaneous Approach, Diagnostic (ICD-10-PCS; principal; 2024-07-29 12:23)
DX: R97.20 Elevated prostate specific antigen [PSA] (principal)
CPT/HCPCS: 76872-TC; 77021-TC; 82010; 82962; 88305-TC; 94760